=== PATIENT | male | born 1960 | race Hispanic/Latino ===

== ENCOUNTER 2020-10-04 09:30 | Emergency (ER) | payer OTHER ==
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
--- NOTE | 2020-10-04 11:15 | RAD REPORT ---
EXAM DESCRIPTION: RAD - Thoracic Spine Ap/Lat - 10/04/2020 10:16 am CLINICAL HISTORY: Back pain FINDINGS: Mild kyphosis. Moderate spondylosis involves the thoracic spine mainly consisting of osteophytes. No fracture or dislocation
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
[2020-10-04 12:39] VITALS: TEMP 98.3
[2020-10-04 12:42] VITALS: BP 138/89; O2SAT 99
== END 2020-10-04 12:13 | disposition home or self-care (01) ==
LOC: ER 09:30
DX: S23.3XXA Sprain of ligaments of thoracic spine, initial encounter (principal); S13.8XXA Sprain of joints and ligaments of other parts of neck, initial encounter; S00.83XA Contusion of other part of head, initial encounter; V49.40XA Driver injured in collision with unspecified motor vehicles in traffic accident, initial encounter
CPT/HCPCS: 70450; 72070; 72125; 99284

== ENCOUNTER 2020-10-12 14:17 | Emergency (ER) | payer BC ==
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
== END 2020-10-12 15:42 | disposition left against medical advice (07) ==
LOC: ER 14:17
DX: Z53.21 Procedure and treatment not carried out due to patient leaving prior to being seen by health care provider (principal)
CPT/HCPCS: 99281